=== PATIENT | female | born 1975 | race Caucasian/White ===

== ENCOUNTER → 2018-10-06 | Outpatient (CLI) | payer BC ==
[~2018-10-06] MED LIST: LOR5/325 PO; SULF-198 PO
--- NOTE | 2018-10-07 09:32 | RADIOLOGY IMAGING REPORT ---
FACILITY: [facility] PATIENT NAME: MONSE CALERO : [id number] MR: [id number] V: [id number] EXAM DATE: [id number] ORDERING PHYSICIAN: DANIE ESCOBAR TECHNOLOGIST: Xuan Martinez PROCEDURE: BILATERAL DIGITAL SCREENING MAMMOGRAM WITH CAD ASSISTED INTERPRETATION & 3D TOMOSYNTHESIS REASON FOR STUDY: Screening FAMILY HISTORY OF BREAST CANCER: Paternal Grandmother BREAST PROCEDURES/TREATMENTS: None COMPARISON: None VIEWS OBTAINED: Bilateral 2D & 3D full field CC & MLO projections & bilateral 2D full field XCC projections. BREAST DENSITY: The breasts are heterogeneously dense which can obscure small masses. MAMMOGRAM FINDINGS: Just posterior to mid nipple line in the anterior depth on the Right CC view there is suggestion of a circumscribed nodular density best appreciated on tomographic slice #36. Spot compression view is recommended for further evaluation. IMPRESSION: BIRADS 0: Incomplete, need additional imaging evaluation. Additional views of the Right breast & possibly Right breast Ultrasound recommended as described above. DIAGNOSTIC CATEGORY 0--INCOMPLETE: NEED ADDITIONAL IMAGING EVALUATION. RECOMMENDATIONS: ADDITIONAL MAMMOGRAPHIC VIEWS REQUIRED: RIGHT BREAST. ULTRASOUND: RIGHT BREAST. Dictated by: Mary Arguelles M.D. on 10/06/2018 at 17:27 Transcribed by: BARBARA on 10/07/2018 at 8:39 Approved by: Mary Arguelles M.D. on 10/07/2018 at 9:28 [facility]
== END ==
LOC: MAMO 07:18
PROVIDERS: ATTEND Obstetrics & Gynecology
DX: R92.2 Inconclusive mammogram (principal); Z80.3 Family history of malignant neoplasm of breast
CPT/HCPCS: 77063; 77067

== ENCOUNTER → 2018-10-24 | Outpatient (CLI) | payer BC ==
--- NOTE | 2018-10-25 10:56 | RADIOLOGY IMAGING REPORT ---
FACILITY: [facility] PATIENT NAME: MONSE CALERO : [id number] MR: [id number] V: [id number] EXAM DATE: [id number] ORDERING PHYSICIAN: DANIE ESCOBAR TECHNOLOGIST: Lakeisha Meyer PROCEDURE:RIGHT DIGITAL MAMMOGRAM DIAGNOSTIC WITH CAD ASSISTED INTERPRETATION & 3D TOMOSYNTHESIS REASON FOR STUDY: Further evaluation FAMILY HISTORY OF BREAST CANCER: BREAST PROCEDURES/TREATMENTS: COMPARISON STUDIES: Mammograms 10/06/18 MAMMOGRAM VIEWS OBTAINED: 2D & 3D spot compression view in the Right CC projection. BREAST DENSITY: MAMMOGRAM FINDINGS: The nodular density seen just posterior to mid nipple line on the recent Right CC view appeared compressible & apparently represented a summation shadow. DIAGNOSTIC CATEGORY 2--BENIGN FINDING. RECOMMENDATIONS: ROUTINE MAMMOGRAM AND CLINICAL EVALUATION. IMPRESSION: BIRADS 2: Benign finding. Dictated by: Mary Arguelles M.D. on 10/24/2018 at 16:20 Transcribed by: BARBARA on 10/25/2018 at 10:34 Approved by: Mary Arguelles M.D. on 10/25/2018 at 10:50 [facility]
== END ==
LOC: MAMO 00:45
PROVIDERS: ATTEND Obstetrics & Gynecology
DX: R92.8 Other abnormal and inconclusive findings on diagnostic imaging of breast (principal)
CPT/HCPCS: 77061; 77065